=== PATIENT | male | born 1970 | race Caucasian/White ===

== ENCOUNTER 2017-06-01 16:36 | Emergency (ER) | payer MEDICAID, SELFPAY ==
--- NOTE | 2017-06-01 18:22 | HMH.EDUTC ---
[facility] [place] Disposition Clinical Impression: Viral upper respiratory illness Disposition: Home, Self-Care Condition on Discharge: Good Instructions: DI for Viral Upper Respiratory Infection -- Adult, DI for Fever (Symptom) -- Adult Additional Instructions: * Monitor Temp. Tylenol and/or Ibuprofen as needed. ER if fever is no less than 101 despite alternating Tylenol and Ibuprofen * Encourage fluids, water, Gatorade, powerade, pedialyte if /toddler/or child * Warm salt water gargles for throat irritation *Warm fluids *Sore throat lozenges *Sleep elevated *humidifier or vaporizer Lots of rest Increase fluids, water, Gatorade, powerade Follow up IMMEDIATELY for new or worsening of symptoms OR no noticeable improvement over the next 48-72 hours. 911 immediately for any life threatening symptoms such as chest pain or difficulty breathing Follow up with family doctor tomorrow if symptoms persist or worsen Prescriptions: Benzonatate [Tessalon Perle 100mg Cap] 100 mg PO TID PRN #15 cap PRN Reason: Cough Time of Disposition: 19:06 Medical Decision Making Vital Signs: 06/01/17 18:36 Temperature 100.4 F H Temperature Source Temporal Artery Scan Pulse Rate [Right Brachial] 84 Respiratory Rate 20 Blood Pressure [Right Arm] 112/75 Blood Pressure Mean [Right Arm] 87 Blood Pressure Source [Right Arm] Automatic Cuff Blood Pressure Position [Right Arm] Sitting 02 Sat by Pulse Oximetry 95 Oxygen Delivery Method Room Air - Bogdan Inquiry Pt receiving controlled substance: No Bogdan was queried for this patient: No [facility] [place] HPI - General Stated complaint: CHILLS,FEVER - History of Present Illness Provider Complaint: Patient state that he has been having flu like symptoms State that they have continued to get worse. State that he has been having low grade fever body aches, chills and sore throat State that he was worried and wanted to be checked for the flu - Related Data Home Medications Medication Instructions Recorded Confirmed Aspirin [Aspirin 81mg chewable 81 mg PO DAILY 06/01/17 06/01/17 tab] Carvedilol [Carvedilol 25mg Tab] 25 mg PO DAILY 06/01/17 06/01/17 Lisinopril [Lisinopril 40mg Tablet] 40 mg PO DAILY 06/01/17 06/01/17 Pravastatin Sodium [Pravachol] 20 mg PO DAILY 06/01/17 06/01/17 Previous Rx's Medication Instructions Recorded Benzonatate [Tessalon Perle 100mg 100 mg PO TID PRN #15 cap 06/01/17 Cap] Allergies Allergy/AdvReac Type Severity Reaction Status Date / Time From TETANUS AND DIPHTHERIA Allergy Unknown SWELLING Uncoded 05/10/17 14:05 TOXOIDS A... [facility] History I have reviewed the patient's past medical history: Yes ROS Obtained: Yes All systems reviewed & no additional complaints - Constitutional Constitutional: Reports chills, Reports fever(s) - ENT Ears, Nose, Mouth, and Throat: Reports sore throat - Respiratory Respiratory: Yes cough Physical Exam - General General appearance: alert, in no apparent distress - ENT ENT exam: Present: normal exam, normal oropharynx, mucous membranes moist, TM's normal bilaterally, normal external ear exam - Respiratory Respiratory exam: Present: normal lung sounds bilaterally. Absent: respiratory distress - Cardiovascular Cardiovascular exam: Present: regular rate, normal rhythm. Absent: JVD - Neurological Exam Neurological exam: Present: alert, oriented X3
[2017-06-01 18:36] VITALS: BP 112/75; PULSE 84; RESP 20; TEMP 38; O2SAT 95; BMI 40.7
[2017-06-01 19:08] LABS: UTC Influenza A Antigen Negative (Negative); UTC Influenza B Antigen Negative (Negative)
== END 2017-06-01 19:16 | disposition home or self-care (01) ==
PROVIDERS: Emergency Provider Nurse Practitioner
DX: J06.9 Acute upper respiratory infection, unspecified (principal)
CPT/HCPCS: 87804; 99202

== ENCOUNTER 2017-07-14 19:29 | Emergency (ER) | payer MEDICAID, SELFPAY ==
[2017-07-14 19:45] VITALS: BP 140/92; PULSE 73; RESP 20; TEMP 37.1; O2SAT 97; BMI 43.0
--- NOTE | 2017-07-14 19:53 | HMH.EDUTC ---
[facility] [place] Clinical Impression: Low back pain Qualifiers: Chronicity: acute Back pain laterality: right Sciatica presence: without sciatica Qualified Code(s): M54.5 - Low back pain Right otitis media Qualifiers: Otitis media type: suppurative Chronicity: acute Recurrence: not specified as recurrent Spontaneous tympanic membrane rupture: without spontaneous rupture Qualified Code(s): H66.001 - Acute suppurative otitis media without spontaneous rupture of ear drum, right ear Hypertension Qualifiers: Hypertension type: essential hypertension Qualified Code(s): I10 - Essential (primary) hypertension Disposition: Home, Self-Care Condition on Discharge: Good Prescriptions: Amoxicillin/Potassium Clav [Augmentin 875-125 Tablet] 1 tab PO Q12H 10 Days #20 tab Amoxicillin/Potassium Clav [Augmentin 875-125 Tablet] 1 tab PO Q12H 10 Days #20 tab hydroCHLOROthiazide [Hydrochlorothiazide 12.5mg Tab] 12.5 mg PO DAILY 21 Days #21 tab hydroCHLOROthiazide [Hydrochlorothiazide 12.5mg Tab] 12.5 mg PO DAILY 21 Days #21 tab methylPREDNISolone [Medrol] 4 mg PO DAILY 6 Days #21 tab.ds.pk methylPREDNISolone [Medrol] 4 mg PO DAILY 6 Days #21 tab.ds.pk Time of Disposition: 20:03 Medical Decision Making - Medical Records Medical records reviewed: Yes: I reviewed the patient's medical records. - Bogdan Inquiry Pt receiving controlled substance: No [facility] [place] - General Stated complaint: Back Pain, Right Ear Pain, High BP Time Seen by Provider: 07/14/17 19:53 - History of Present Illness Provider Complaint: Patient has had right ear pain for 3 months. It feels full. He has taken loratadine without relief. Patient has chronic back pain related to a fall 3-4 years ago. Patient states his blood pressure has been elevated. He is on Lisinopril and Carvedilol. Onset (ago): month(s) (3) Location: face Relieving factors: none Exacerbating factors: none Treatments prior to arrival: other (loratadine) - Related Data Home Medications Medication Instructions Recorded Confirmed Aspirin [Aspirin 81mg chewable 81 mg PO DAILY 06/01/17 06/01/17 tab] Carvedilol [Carvedilol 25mg Tab] 25 mg PO DAILY 06/01/17 06/01/17 Lisinopril [Lisinopril 40mg Tablet] 40 mg PO DAILY 06/01/17 06/01/17 Pravastatin Sodium [Pravachol] 20 mg PO DAILY 06/01/17 06/01/17 Previous Rx's Medication Instructions Recorded Benzonatate [Tessalon Perle 100mg 100 mg PO TID PRN #15 cap 06/01/17 Cap] Amoxicillin/Potassium Clav 1 tab PO Q12H 10 Days #20 tab 07/14/17 [Augmentin 875-125 Tablet] Amoxicillin/Potassium Clav 1 tab PO Q12H 10 Days #20 tab 07/14/17 [Augmentin 875-125 Tablet] hydroCHLOROthiazide 12.5 mg PO DAILY 21 Days #21 tab 07/14/17 [Hydrochlorothiazide 12.5mg Tab] hydroCHLOROthiazide 12.5 mg PO DAILY 21 Days #21 tab 07/14/17 [Hydrochlorothiazide 12.5mg Tab] methylPREDNISolone [Medrol] 4 mg PO DAILY 6 Days #21 tab.ds.pk 07/14/17 methylPREDNISolone [Medrol] 4 mg PO DAILY 6 Days #21 tab.ds.pk 07/14/17 Allergies Allergy/AdvReac Type Severity Reaction Status Date / Time From TETANUS AND DIPHTHERIA Allergy Unknown SWELLING Uncoded 05/10/17 14:05 TOXOIDS A... [facility] History I have reviewed the patient's past medical history: Yes Medical History: Reports:: Hyperlipidemia, Hypertension Denies:: Cancer, Diabetes Mellitus Type 1, Diabetes Mellitus Type 2, MRSA Amputation: No Fractures: No - Social History Smoking Status: Never smoker Alcohol Intake: never ROS Obtained: Yes All systems reviewed & no additional complaints - ENT Ears, Nose, Mouth, and Throat: Reports otalgia - Musculoskeletal Musculoskeletal: Reports back pain Physical Exam - General General appearance: alert, in no apparent distress - Head Head exam: atraumatic, normocephalic, normal inspection - Eye Eye exam: Present: normal appearance, PERRL, EOMI - ENT ENT exam: Present: normal exam, normal oropharynx, mucous membranes moist, normal external ear exa
--- NOTE | 2017-07-14 19:56 | ED_ITS ---
[facility] [place] Disposition Clinical Impression: Low back pain Qualifiers: Chronicity: acute Back pain laterality: right Sciatica presence: without sciatica Qualified Code(s): M54.5 - Low back pain Right otitis media Qualifiers: Otitis media type: suppurative Chronicity: acute Recurrence: not specified as recurrent Spontaneous tympanic membrane rupture: without spontaneous rupture Qualified Code(s): H66.001 - Acute suppurative otitis media without spontaneous rupture of ear drum, right ear Hypertension Qualifiers: Hypertension type: essential hypertension Qualified Code(s): I10 - Essential ( primary) hypertension Disposition: Home, Self-Care Condition on Discharge: Good Prescriptions: Amoxicillin/Potassium Clav [Augmentin 875-125 Tablet] 1 tab PO Q12H 10 Days #20 tab Amoxicillin/Potassium Clav [Augmentin 875-125 Tablet] 1 tab PO Q12H 10 Days #20 tab hydroCHLOROthiazide [Hydrochlorothiazide 12.5mg Tab] 12.5 mg PO DAILY 21 Days # 21 tab hydroCHLOROthiazide [Hydrochlorothiazide 12.5mg Tab] 12.5 mg PO DAILY 21 Days # 21 tab methylPREDNISolone [Medrol] 4 mg PO DAILY 6 Days #21 tab.ds.pk methylPREDNISolone [Medrol] 4 mg PO DAILY 6 Days #21 tab.ds.pk Time of Disposition: 20:03 Medical Decision Making - Medical Records Medical records reviewed: Yes: I reviewed the patient's medical records. - Bogdan Inquiry Pt receiving controlled substance: No [facility] [place] HPI - General Stated complaint: Back Pain, Right Ear Pain, High BP Time Seen by Provider: 07/14/17 19:53 - History of Present Illness Provider Complaint: Patient has had right ear pain for 3 months. It feels full. He has taken loratadine without relief. Patient has chronic back pain related to a fall 3-4 years ago. Patient states his blood pressure has been elevated. He is on Lisinopril and Carvedilol. Onset (ago): month(s) (3) Location: face Relieving factors: none Exacerbating factors: none Treatments prior to arrival: other (loratadine) - Related Data Home Medications Medication Instructions Recorded Confirmed Aspirin [Aspirin 81mg chewable 81 mg PO DAILY 06/01/17 06/01/17 tab] Carvedilol [Carvedilol 25mg Tab] 25 mg PO DAILY 06/01/17 06/01/17 Lisinopril [Lisinopril 40mg Tablet] 40 mg PO DAILY 06/01/17 06/01/17 Pravastatin Sodium [Pravachol] 20 mg PO DAILY 06/01/17 06/01/17 Previous Rx's Medication Instructions Recorded Benzonatate [Tessalon Perle 100mg 100 mg PO TID PRN #15 cap 06/01/17 Cap] Amoxicillin/Potassium Clav 1 tab PO Q12H 10 Days #20 tab 07/14/17 [Augmentin 875-125 Tablet] Amoxicillin/Potassium Clav 1 tab PO Q12H 10 Days #20 tab 07/14/17 [Augmentin 875-125 Tablet] hydroCHLOROthiazide 12.5 mg PO DAILY 21 Days #21 tab 07/14/17 [Hydrochlorothiazide 12.5mg Tab] hydroCHLOROthiazide 12.5 mg PO DAILY 21 Days #21 tab 07/14/17 [Hydrochlorothiazide 12.5mg Tab] methylPREDNISolone [Medrol] 4 mg PO DAILY 6 Days #21 tab.ds.pk 07/14/17 methylPREDNISolone [Medrol] 4 mg PO DAILY 6 Days #21 tab.ds.pk 07/14/17 Allergies Allergy/AdvReac Type Severity Reaction Status Date / Time From TETANUS AND DIPHTHERIA Allergy Unknown SWELLING Uncoded 05/10/17 14:05 TOXOIDS A... [facility] History I have reviewed the patient's past medical history: Yes Medical History: Reports:: Hyperlipidemia, Hypertension Denies:: Cancer, Diabetes Mellitus Type 1, Diabetes Mellitus Type 2, MRSA Amputation: No Fra
[2017-07-14 20:16] VITALS: BP 135/69; PULSE 75; RESP 20; TEMP 36.9; O2SAT 98
== END 2017-07-14 20:18 | disposition home or self-care (01) ==
PROVIDERS: Emergency Provider Physician Assistant
DX: H66.001 Acute suppurative otitis media without spontaneous rupture of ear drum, right ear (principal); I10 Essential (primary) hypertension; M54.6 Pain in thoracic spine; Z79.82 Long term (current) use of aspirin; Z88.7 Allergy status to serum and vaccine; E78.5 Hyperlipidemia, unspecified
CPT/HCPCS: 99202

== ENCOUNTER 2017-07-21 22:33 | Emergency (ER) | payer MEDICAID, SELFPAY ==
[2017-07-21 22:33] VITALS: BP 138/98; PULSE 71; RESP 20; TEMP 36.7; O2SAT 98; BMI 40.7
--- NOTE | 2017-07-21 22:44 | XR_ITS ---
XR chest 2V HISTORY: ITS.REASON: CHEST PAIN ORDERING PHYSICIAN: Nirmal Mace MD PATIENT AGE: 47 years COMPARISON: None available FINDINGS: There is mild cardiomegaly without failure.. The lungs are clear without infiltrates, suspicious nodules, or pleural effusions. No acute bony abnormalities. IMPRESSION: Mild cardiomegaly otherwise negative
[2017-07-21 22:59] LABS: Basophils % 0.1 % (0.1-2.0); Eosinophils # 0.1 K/mm3 (0.0-0.4); Eosinophils % 0.4 % (0.1-12.0); Hematocrit 49.6 % (42.0-52.0); Hemoglobin 15.8 g/dL (14.1-18.0); Lymphocytes # 1.6 K/mm3 (0.7-4.5); Lymphocytes % 11.8 K/mm3 (10-50); Mean Corpuscular Hemoglobin 30.2 pg (27.0-31.2); Mean Corpuscular Volume 94.3 fl (80-94); Mean Platelet Volume 8.5 fl (7.4-10.4); Monocytes # 0.9 K/mm3 (0.1-1.0); Monocytes % 6.2 % (1.7-9.3); Neutrophils # 11.2 K/mm3 (1.8-7.8); Neutrophils % 81.4 % (37.0-80.0); Platelet Count 281 K/mm3 (142-424); Red Blood Count 5.25 M/mm3 (4.60-6.20); Red Cell Distribution Width 13.5 % (11.5-17.5); White Blood Count 13.8 K/mm3 (4.8-10.8)
--- NOTE | 2017-07-21 23:06 | HMH.EDCP ---
ED Disposition Clinical Impression: Renal insufficiency Chest pain Qualifiers: Chest pain type: precordial pain Qualified Code(s): R07.2 - Precordial pain Hypertension Qualifiers: Hypertension type: unspecified Qualified Code(s): I10 - Essential (primary) hypertension Disposition: Home, Self-Care Condition on Discharge: Good Instructions: DI for Atypical Chest Pain Additional Instructions: see card at 0900 - Critical Care Critical Care Time: No Attestation: On 07/21/17, the high probability of a clinically significant, sudden or life threatening deterioration of the following system(s) required my full and direct attention, intervention and personal management. The time I documented below is in addition to time spent performing reported procedures but includes the following listed in this critical care notation. Medical Decision Making - Medical Records Medical records reviewed: Yes: I reviewed the patient's medical records. Vital Signs: 07/21/17 22:33 Temperature 98.1 F Temperature Source Oral Pulse Rate [Right Radial] 71 Respiratory Rate 20 Blood Pressure [Right Arm] 138/98 Blood Pressure Mean [Right Arm] 111 Blood Pressure Position [Right Arm] Sitting 02 Sat by Pulse Oximetry 98 - Lab Data Lab results reviewed: Yes: I reviewed the patient's lab results. Lab Results 07/21/17 22:50: WBC 13.8 H, RBC 5.25, Hgb 15.8, Hct 49.6, MCV 94.3 H, MCH 30.2, MCHC 32.0, RDW 13.5, Plt Count 281, MPV 8.5, Neut % (Auto) 81.4 H, Lymph % (Auto) 11.8, [place] % (Auto) 6.2, Eos % (Auto) 0.4, Baso % (Auto) 0.1, Neut # (Auto) 11.2 H, Lymph # (Auto) 1.6, [place] # (Auto) 0.9, Eos # (Auto) 0.1, Baso # (Auto) 0.0 07/21/17 22:50: Sodium 138, Potassium 4.1, Chloride 101, Carbon Dioxide 30, Anion Gap 11.1, BUN 37 H, Creatinine 1.55 H, Estimated Creat Clear 96, Estimated GFR 48 L, Est GFR ( Amer) 58 L, Glucose 132 H, Calcium 8.8, Total Bilirubin 0.4, AST 13 L, ALT 47, Alkaline Phosphatase 73, Total Creatine Kinase 87, CK-MB (CK-2) 2.1, CK-MB (CK-2) Rel Index 2.4, Troponin I < 0.02, Total Protein 7.3, Albumin 3.8, Globulin 3.5 H, Albumin/Globulin Ratio 1.1 Result diagrams: 07/21/17 22:50 07/21/17 22:50 Orders (Tests/Meds): ED MEDICATIONS Discontinued Medications Generic Name Dose Route Start Last Admin Trade Name Eva PRN Reason Stop Dose Admin Aspirin 324 mg 07/21/17 22:56 07/21/17 22:57 Aspirin 81mg Chewable Tablet PO 07/21/17 22:57 324 mg ONCE ONE Administration ORDERS Category Date Time Status XR chest 2V Stat Exams 07/21/17 22:44 Taken - Radiology Data #1 Image(s): Chest Image Reviewed: Yes I reviewed the patient's radiology image Preliminary Findings: Abnormal (possible anuyersm) - ECG Data Tracing #1 I reviewed this ECG and interpreted as documented below: Normal Sinus Rhythm: Yes Ischemic changes: non-specific ST-T wave changes - Bogdan Inquiry Pt receiving controlled substance: No Chest Pain HPI - General Chief Complaint: Chest Pain Stated Complaint: HYPERTENSION Time Seen by Provider: 07/21/17 23:07 Mode of Arrival: Ambulatory Source of Information: Patient, Medical Record Limitations: No Limitations Description of Symptoms (Recalled from ER Triage Doc. by RN): PT STATES HIS BP HAS BEEN SHOOTING UP. PT WAS SEEN AT PMD AND HIS BP WAS FINE. PT TAKES LISINOPRIL AT HOME. PT STATES HE STARTED HAVING SOME CHEST PAINS TODAY ALSO. PT STATES THAT WHEN HIS BP IS HIGH HE HAS BILATERAL HAND NUMBNESS AND TINGLING - History of Present Illness HPI narrative: pt with episode of elevated bp at work yesterday and seen by pcp- he had chest pain x 2 today lasting hrs each- had gxt in 2015 was neg complaint: chest pain Onset (ago): day(s) Duration: now resolved Activity at onset: light activity Pain location: substernal Severity: moderate Quality: dull Relieving factors: nothing Exacerbating factors: nothing Risk Factors for CAD: Hypertension, Hyperch
[2017-07-21 23:24] LABS: Alanine Aminotransferase 47 U/L (12-78); Albumin Level 3.8 gm/dL (3.4-5.0); Albumin/Globulin Ratio 1.1 (1.1-1.8); Alkaline Phosphatase 73 U/L (46-116); Anion Gap 11.1 mEq/L (5-15); Aspartate Amino Transferase 13 U/L (15-37); Bilirubin,Total 0.4 mg/dL (0.2-1.0); Blood Urea Nitrogen 37 mg/dL (7-18); CKMB Relative Index 2.4 U/L (0-4.0); Calcium 8.8 mg/dL (8.5-10.1); Carbon Dioxide 30 mmol/L (21.0-32.0); Chloride 101 mmol/L (98-107); Creatine Kinase 87 U/L (39-308); Creatine Kinase MB 2.1 mg/ml (0.0-3.6); Creatinine Clearance Estimated 96 mL/min (0-300); Creatinine,Serum 1.55 mg/dL (0.70-1.30); Estimated Glomerular Filt Rate 48 ml/min (>60); GFR (African American) 58 ML/MIN (>60); Globulin 3.5 gm/dl (1.3-3.2); Glucose 132 mg/dL (74-106); Potassium 4.1 mmoL/L (3.5-5.1); Sodium 138 mmol/L (136-145); Total Protein,Serum 7.3 gm/dL (6.4-8.2); Troponin I < 0.02 ng/ml (0.00-0.06)
[2017-07-22 00:52] LABS: Troponin I < 0.02 ng/ml (0.00-0.06)
[2017-07-22 01:04] VITALS: BP 140/78; PULSE 78; RESP 20; TEMP 36.6; O2SAT 99
== END 2017-07-22 01:10 | disposition home or self-care (01) ==
PROVIDERS: Emergency Provider Emergency Medicine
DX: R07.2 Precordial pain (principal); R07.9 Chest pain, unspecified; N28.9 Disorder of kidney and ureter, unspecified; E78.5 Hyperlipidemia, unspecified; Z79.82 Long term (current) use of aspirin; Z88.7 Allergy status to serum and vaccine
CPT/HCPCS: 71046; 80053; 82550; 82553; 84484; 85025; 93005; 99282

== ENCOUNTER 2017-08-11 21:36 | Emergency (ER) | payer MEDICAID, SELFPAY ==
[2017-08-11 21:46] VITALS: BP 124/87; PULSE 67; RESP 20; O2SAT 99; BMI 40.7
--- NOTE | 2017-08-11 21:51 | CT_ITS ---
CT head/brain wo con HISTORY: Visual disturbance, hypertension, arm numbness ITS.REASON: arm numbness ORDERING PHYSICIAN: Mich Israel MD PATIENT AGE: 47 years COMPARISON: None TECHNIQUE: Axial images obtained without contrast. Brain and bone windows reviewed. All CT scans at the facility use one or more dose reduction, viz: automated exposure control; ma/kV adjustment per patient size (including targeted exams where dose is matched to indication; i.e. head); or iterative reconstruction technique. FINDINGS: No midline shift, mass effect, intracranial hemorrhage, hydrocephalus, or extra-axial fluid collection is evident. Hypodense changes are present in the periventricular region consistent with ischemic gliotic change from microvascular disease. The calvarium has an unremarkable appearance. No mastoid effusion. No sinus air-fluid levels.. IMPRESSION: No acute intracranial findings. Periventricular white matter changes which may related to periventricular ischemic gliotic change from microvascular disease. There is no evidence of intracranial hemorrhage, focal mass, or acute territorial infarction. A negative CT does not exclude an acute CVA. A follow-up head CT or MRI is recommended if neurological symptoms persist
--- NOTE | 2017-08-11 21:51 | XR_ITS ---
XR chest 2V HISTORY: Hypotension ITS.REASON: arm numbness ORDERING PHYSICIAN: Mich Israel MD PATIENT AGE: 47 years COMPARISON: None available FINDINGS: The cardiomediastinal silhouette and pulmonary vascularity are within normal limits. The lungs are clear without infiltrates, suspicious nodules, or pleural effusions. No acute bony abnormalities. IMPRESSION: Negative chest, no acute finding
[2017-08-11 22:25] LABS: Basophils % 0.5 % (0.1-2.0); Eosinophils # 0.3 K/mm3 (0.0-0.4); Eosinophils % 3.6 % (0.1-12.0); Hematocrit 44.5 % (42.0-52.0); Hemoglobin 14.5 g/dL (14.1-18.0); Lymphocytes # 1.8 K/mm3 (0.7-4.5); Lymphocytes % 24.3 K/mm3 (10-50); Mean Corpuscular HGB Conc 32.5 g/dL (31.8-35.4); Mean Corpuscular Hemoglobin 29.9 pg (27.0-31.2); Mean Corpuscular Volume 91.9 fl (80-94); Mean Platelet Volume 8.8 fl (7.4-10.4); Monocytes # 0.5 K/mm3 (0.1-1.0); Monocytes % 6.8 % (1.7-9.3); Neutrophils # 4.8 K/mm3 (1.8-7.8); Neutrophils % 64.8 % (37.0-80.0); Platelet Count 270 K/mm3 (142-424); Red Blood Count 4.85 M/mm3 (4.60-6.20); White Blood Count 7.5 K/mm3 (4.8-10.8)
[2017-08-11 23:05] LABS: Alanine Aminotransferase 32 U/L (12-78); Albumin Level 3.8 gm/dL (3.4-5.0); Albumin/Globulin Ratio 1.1 (1.1-1.8); Alkaline Phosphatase 85 U/L (46-116); Anion Gap 9.9 mEq/L (5-15); Aspartate Amino Transferase 17 U/L (15-37); Bilirubin,Total 0.4 mg/dL (0.2-1.0); Blood Urea Nitrogen 26 mg/dL (7-18); CKMB Relative Index 1.5 U/L (0-4.0); Calcium 8.8 mg/dL (8.5-10.1); Carbon Dioxide 30 mmol/L (21.0-32.0); Chloride 102 mmol/L (98-107); Creatine Kinase 84 U/L (39-308); Creatine Kinase MB 1.3 ng/ml (0.0-3.6); Creatinine Clearance Estimated 88 mL/min (0-300); Estimated Glomerular Filt Rate 43 ml/min (>60); GFR (African American) 52 ML/MIN (>60); Globulin 3.5 gm/dl (1.3-3.2); Glucose 116 mg/dL (74-106); Potassium 3.9 mmoL/L (3.5-5.1); Sodium 138 mmol/L (136-145); Total Protein,Serum 7.3 gm/dL (6.4-8.2); Troponin I < 0.02 ng/ml (0.00-0.06)
--- NOTE | 2017-08-11 23:19 | HMH.EDGENADL ---
ED Disposition Clinical Impression: TIA (transient ischemic attack), Hypertension, Hyperlipidemia, Renal insufficiency Disposition: Xfer Short-Term Hosp Condition on Discharge: Fair - Critical Care Critical Care Time: No Attestation: On 08/11/17, the high probability of a clinically significant, sudden or life threatening deterioration of the following system(s) required my full and direct attention, intervention and personal management. The time I documented below is in addition to time spent performing reported procedures but includes the following listed in this critical care notation. Medical Decision Making - Bogdan Inquiry Pt receiving controlled substance: No Bogdan was queried for this patient: No Vital Signs: 08/11/17 21:46 Pulse Rate [Right Radial] 67 Respiratory Rate 20 Blood Pressure [Right Arm] 124/87 Blood Pressure Mean [Right Arm] 99 Blood Pressure Position [Right Arm] Sitting 02 Sat by Pulse Oximetry 99 - Lab Data Lab Results 08/11/17 22:20: WBC 7.5, RBC 4.85, Hgb 14.5, Hct 44.5, MCV 91.9, MCH 29.9, MCHC 32.5, RDW 13.0, Plt Count 270, MPV 8.8, Neut % (Auto) 64.8, Lymph % (Auto) 24.3, [place] % (Auto) 6.8, Eos % (Auto) 3.6, Baso % (Auto) 0.5, Neut # (Auto) 4.8, Lymph # (Auto) 1.8, [place] # (Auto) 0.5, Eos # (Auto) 0.3, Baso # (Auto) 0.0 08/11/17 22:20: Sodium 138, Potassium 3.9, Chloride 102, Carbon Dioxide 30, Anion Gap 9.9, BUN 26 H, Creatinine 1.70 H, Estimated Creat Clear 88, Estimated GFR 43 L, Est GFR ( Amer) 52 L, Glucose 116 H, Calcium 8.8, Total Bilirubin 0.4, AST 17, ALT 32, Alkaline Phosphatase 85, Total Creatine Kinase 84, CK-MB (CK-2) 1.3 D, CK-MB (CK-2) Rel Index 1.5, Troponin I < 0.02, Total Protein 7.3, Albumin 3.8, Globulin 3.5 H, Albumin/Globulin Ratio 1.1 Result diagrams: 08/11/17 22:20 08/11/17 22:20 Orders (Tests/Meds): ORDERS Category Date Time Status CT head/brain wo con Stat Cat Scan 08/11/17 21:51 Taken XR chest 2V Stat Exams 08/11/17 21:51 Taken - Radiology Data #1 Image(s): Chest Preliminary Findings: Normal/NAD - CT Data CT Scan: Head Time Received: 23:[address] Reviewed: Yes: I have viewed the radiologist's interpretation Preliminary Findings: Normal/NAD - ECG Data Tracing #1 Sinus bradycardia 52/min no acute finding. ECG initial impression date: 08/11/17 ECG initial impression time: 23:39 Medical Decision Narrative: 2330 I called [facility] spoke with Dr. Butcher from stroke service. She accepted the patient for transfer. General Adult HPI - General Chief complaint: Eye Problems Stated complaint: BP LOW Time Seen by Provider: 08/11/17 22:30 Mode of Arrival: Family Vehicle Limitations: No Limitations Description of Symptoms (Recalled from ER Triage Doc. by RN): pt states she started seeing spots while at work, pt had his bp checked and it was low. pt states he started having some right hand numbness also at approx 1000. - History of Present Illness HPI narrative: 47 years old white male with history of hypertension and hyperlipidemia. Today at 10 am, he developed right numbness that lasted until 3 PM when he went to work. At 8 PM he developed vision and felt weak so he checked his blood pressure was 90/60. Brought to the ED upon arrival his blood pressure was 120/90 mmhg. it lasted for for an hour then the symptoms resolved. Remained asymptomatic and hemodynamically stable during his workup in the ED. Onset (ago): hour(s) (Right hand numbness for 5 hours right eye blurry for 1 hour.) Location: eyes, right, upper extremity Radiation: non-radiation Severity: mild Consistency: constant Exacerbating factors: none Associated symptoms: other (Dizziness. ) - Related Data Home Medications Medication Instructions Recorded Confirmed Aspirin [Aspirin 81mg chewable 81 mg PO DAILY 06/01/17 08/11/17 tab] Lisinopril [Lisinopril 40mg Tablet] 40 mg PO DAILY 06/01/17 08/11/17 Pr
--- NOTE | 2017-08-11 23:22 | ED_ITS ---
ED Disposition Clinical Impression: TIA (transient ischemic attack), Hypertension, Hyperlipidemia, Renal insufficiency Disposition: Xfer Short-Term Hosp Condition on Discharge: Fair - Critical Care Critical Care Time: No Attestation: On 08/11/17, the high probability of a clinically significant, sudden or life threatening deterioration of the following system(s) required my full and direct attention, intervention and personal management. The time I documented below is in addition to time spent performing reported procedures but includes the following listed in this critical care notation. Medical Decision Making - Bogdan Inquiry Pt receiving controlled substance: No Bogdan was queried for this patient: No Vital Signs: 08/11/17 21:46 Pulse Rate [Right Radial] 67 Respiratory Rate 20 Blood Pressure [Right Arm] 124/87 Blood Pressure Mean [Right Arm] 99 Blood Pressure Position [Right Arm] Sitting 02 Sat by Pulse Oximetry 99 - Lab Data Lab Results 08/11/17 22:20: WBC 7.5, RBC 4.85, Hgb 14.5, Hct 44.5, MCV 91.9, MCH 29.9, MCHC 32.5, RDW 13.0, Plt Count 270, MPV 8.8, Neut % (Auto) 64.8, Lymph % (Auto) 24.3 , [place] % (Auto) 6.8, Eos % (Auto) 3.6, Baso % (Auto) 0.5, Neut # (Auto) 4.8, Lymph # (Auto) 1.8, [place] # (Auto) 0.5, Eos # (Auto) 0.3, Baso # (Auto) 0.0 08/11/17 22:20: Sodium 138, Potassium 3.9, Chloride 102, Carbon Dioxide 30, Anion Gap 9.9, BUN 26 H, Creatinine 1.70 H, Estimated Creat Clear 88, Estimated GFR 43 L, Est GFR ( Amer) 52 L, Glucose 116 H, Calcium 8.8, Total Bilirubin 0.4, AST 17, ALT 32, Alkaline Phosphatase 85, Total Creatine Kinase 84 , CK-MB (CK-2) 1.3 D, CK-MB (CK-2) Rel Index 1.5, Troponin I < 0.02, Total Protein 7.3, Albumin 3.8, Globulin 3.5 H, Albumin/Globulin Ratio 1.1 Result diagrams: 08/11/17 22:20 08/11/17 22:20 Orders (Tests/Meds): ORDERS Category Date Time Status CT head/brain wo con Stat Cat Scan 08/11/17 21:51 Taken XR chest 2V Stat Exams 08/11/17 21:51 Taken - Radiology Data #1 Image(s): Chest Preliminary Findings: Normal/NAD - CT Data CT Scan: Head Time Received: 23:[address] Reviewed: Yes: I have viewed the radiologist's interpretation Preliminary Findings: Normal/NAD - ECG Data Tracing #1 Sinus bradycardia 52/min no acute finding. ECG initial impression date: 08/11/17 ECG initial impression time: 23:39 Medical Decision Narrative: 2330 I called [facility] spoke with Dr. Butcher from stroke service. She accepted the patient for transfer. General Adult HPI - General Chief complaint: Eye Problems Stated complaint: BP LOW Time Seen by Provider: 08/11/17 22:30 Mode of Arrival: Family Vehicle Limitations: No Limitations Description of Symptoms (Recalled from ER Triage Doc. by RN): pt states she started seeing spots while at work, pt had his bp checked and it was low. pt states he started having some right hand numbness also at approx 1000. - History of Present Illness HPI narrative: 47 years old white male with history of hypertension and hyperlipidemia. Today at 10 am, he developed right numbness that lasted until 3 PM when he went to work. At 8 PM he developed vision and felt weak so he checked his blood pressure was 90/60. Brought to the ED upon arrival his blood pressure was 120/ 90 mmhg. it lasted for for an hour then the symptoms resolved. Remained asymptomatic and hemodynamically stable d
[2017-08-11 23:37] VITALS: BP 124/74; PULSE 50; RESP 16; TEMP 36.6; O2SAT 99
[2017-08-12 00:05] VITALS: BP 124/74; PULSE 50; RESP 20; TEMP 36.6; O2SAT 99
== END 2017-08-12 00:21 | disposition short-term general hospital (02) ==
PROVIDERS: Emergency Provider Emergency Medicine
DX: G45.8 Other transient cerebral ischemic attacks and related syndromes (principal); I10 Essential (primary) hypertension; E78.5 Hyperlipidemia, unspecified; N28.9 Disorder of kidney and ureter, unspecified; Z88.7 Allergy status to serum and vaccine
CPT/HCPCS: 70450; 71046; 80053; 82550; 82553; 84484; 85025; 93005; 99284

== ENCOUNTER → 2018-03-01 14:22 | Outpatient (CLI) | payer OTHER, MEDICAID, SELFPAY ==
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
== END ==
PROVIDERS: PCP Family Medicine; Visit Provider Nurse Practitioner Family
DX: M25.571 Pain in right ankle and joints of right foot (principal); V89.2XXA Person injured in unspecified motor-vehicle accident, traffic, initial encounter
CPT/HCPCS: 73610

== ENCOUNTER → 2018-03-23 15:52 | Outpatient (CLI) | payer OTHER, MEDICAID, SELFPAY ==
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
== END ==
PROVIDERS: PCP Nurse Practitioner Family; Visit Provider Nurse Practitioner Family
DX: M79.661 Pain in right lower leg (principal); V89.2XXA Person injured in unspecified motor-vehicle accident, traffic, initial encounter
CPT/HCPCS: 73590

== ENCOUNTER → 2018-04-05 14:07 | Outpatient (CLI) | payer OTHER, MEDICAID, SELFPAY ==
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
== END ==
PROVIDERS: PCP Family Medicine; Visit Provider Family Medicine
DX: M25.471 Effusion, right ankle (principal); M25.571 Pain in right ankle and joints of right foot; V89.2XXA Person injured in unspecified motor-vehicle accident, traffic, initial encounter
CPT/HCPCS: 73700

== ENCOUNTER 2018-04-07 14:30 | Outpatient (RCR) | payer OTHER, MEDICAID, SELFPAY ==
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
== END 2018-04-07 14:35 | disposition home or self-care (01) ==
LOC: PT 14:30
PROVIDERS: Visit Provider Family Medicine
DX: M25.571 Pain in right ankle and joints of right foot (principal); V89.2XXA Person injured in unspecified motor-vehicle accident, traffic, initial encounter
CPT/HCPCS: 97010; 97014; 97016; 97033; 97110; 97140; 97163; G0283

== ENCOUNTER → 2018-05-12 09:40 | Outpatient (CLI) | payer OTHER, MEDICAID, SELFPAY ==
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
--- NOTE | 2018-05-12 11:36 | XR_ITS ---
EXAM: XR lumbar spine min 4V HISTORY: Low back pain ITS.REASON: LUMBAGO ORDERING PHYSICIAN: Nadia Martinez DPM PATIENT AGE: 48 years COMPARISON: None FINDINGS: Normal alignment. No fracture or dislocation. No lytic or blastic change. No significant degenerative change. The disc spaces are preserved. Minimal bony spurring is present along the anterior endplates at L1 4 and L5.. There is mild facet sclerosis at L5-S1 IMPRESSION: No acute finding. Minimal degenerative change
== END ==
PROVIDERS: PCP Family Medicine; Visit Provider Podiatrist
DX: M54.5 Low back pain (principal); M25.579 Pain in unspecified ankle and joints of unspecified foot
CPT/HCPCS: 72110; 73610; 73630

== ENCOUNTER → 2018-06-12 15:07 | Outpatient (CLI) | payer OTHER, MEDICAID, SELFPAY | PROVIDERS: Visit Provider Podiatrist | DX: B35.1 Tinea unguium (principal) | CPT/HCPCS: 87102; 87206; 87220 ==

== ENCOUNTER 2018-06-22 08:00 | Outpatient (RCR) | payer OTHER, MEDICAID, SELFPAY ==
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
== END 2018-06-22 08:05 | disposition home or self-care (01) ==
LOC: PT 08:00
PROVIDERS: Visit Provider Podiatrist
DX: S82.831A Other fracture of upper and lower end of right fibula, initial encounter for closed fracture (principal); S97.81XA Crushing injury of right foot, initial encounter; M25.571 Pain in right ankle and joints of right foot; M19.171 Post-traumatic osteoarthritis, right ankle and foot; G89.29 Other chronic pain
CPT/HCPCS: 97010; 97014; 97110; 97140; 97163; G0283

== ENCOUNTER 2018-06-22 08:30 | Outpatient (RCR) | payer OTHER, MEDICAID, SELFPAY | END 2018-06-22 08:35 | disposition home or self-care (01) | LOC: PT 08:30 | PROVIDERS: Visit Provider Nurse Practitioner Family | DX: M54.5 Low back pain (principal); V89.2XXA Person injured in unspecified motor-vehicle accident, traffic, initial encounter | CPT/HCPCS: 97010; 97014; 97110; 97163; G0283 ==

== ENCOUNTER → 2018-07-04 09:06 | Outpatient (CLI) | payer OTHER, MEDICAID, SELFPAY ==
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
--- NOTE | 2018-07-04 10:58 | HMH.ITSHM ---
Current Home Medications as stated by this patient Mark Jackson or benefits representative. []LISINOPRIL PRAVASTATIN ASPIRIN GABAPENTIN CYCLOBENZAPRINE MELOXICAM CARVEDILOL
== END ==
PROVIDERS: PCP Family Medicine; Visit Provider Podiatrist
DX: S82.831A Other fracture of upper and lower end of right fibula, initial encounter for closed fracture (principal)
CPT/HCPCS: 73720; 73723; A9576

== ENCOUNTER → 2018-07-19 09:06 | Outpatient (CLI) | payer MEDICAID, SELFPAY ==
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
== END ==
PROVIDERS: PCP Family Medicine; Visit Provider Family Medicine
DX: M54.5 Low back pain (principal); G89.21 Chronic pain due to trauma; V89.2XXA Person injured in unspecified motor-vehicle accident, traffic, initial encounter
CPT/HCPCS: 72158; 76376; A9576

== ENCOUNTER 2019-12-02 16:53 | Emergency (ER) | payer OTHER, SELFPAY ==
[2019-12-02 16:57] VITALS: BP 165/90; PULSE 73; RESP 16; TEMP 36.9; O2SAT 97; BMI 40.7
[2019-12-02 17:08] VITALS: BP 165/90; PULSE 73; RESP 16; TEMP 36.9; O2SAT 97; BMI 40.8
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
[2019-12-02 17:44] VITALS: BP 165/90; PULSE 73; RESP 16; TEMP 36.9; O2SAT 97
== END 2019-12-02 17:51 | disposition home or self-care (01) ==
PROVIDERS: Emergency Provider Nurse Practitioner; PCP Family Medicine
DX: H10.32 Unspecified acute conjunctivitis, left eye (principal); I10 Essential (primary) hypertension; E78.5 Hyperlipidemia, unspecified; G43.709 Chronic migraine without aura, not intractable, without status migrainosus; Z88.7 Allergy status to serum and vaccine; Z79.899 Other long term (current) drug therapy
CPT/HCPCS: 99201

== ENCOUNTER 2020-08-28 15:03 | Emergency (ER) | payer OTHER, SELFPAY ==
[2020-08-28] VITALS (10 sets, daily range): BP systolic 122–138; BP diastolic 71–95; PULSE 62–84; RESP 16–24; TEMP 36.5–36.6; O2SAT 91–98; BMI 46.2
--- NOTE | 2020-08-28 15:03 | ECG_ITS ---
APPROVED REPORT Exam: Resting ECG HR:67 bpm ECG Measurements Heart Rate 67 AXES CO 172 P 4 QRSd 92 QRS -63 QT 436 T 97 QTc 460 Conclusion Normal sinus rhythm Pulmonary disease pattern Incomplete right bundle branch block Left anterior fascicular block T wave abnormality, consider lateral ischemia Prolonged QT Abnormal ECG Electronically signed by : Terell Mann, 08/28/2020 17:31:10
--- NOTE | 2020-08-28 15:05 | HMH.EDGENADL ---
ED Disposition Clinical Impression: Ingestion of unknown medication Qualifiers: Encounter type: initial encounter Injury intent: accidental or unintentional Qualified Code(s): T50.901A - Poisoning by unspecified drugs, medicaments and biological substances, accidental (unintentional), initial encounter Disposition: Home, Self-Care Condition on Discharge: Good Additional Instructions: Return to the emergency room for any further problems or concerns. Referrals: PCP,No [Non-Staff] - - Critical Care Critical Care Time: No Attestation: On , the high probability of a clinically significant, sudden or life threatening deterioration of the following system(s) required my full and direct attention, intervention and personal management. The time I documented below is in addition to time spent performing reported procedures but includes the following listed in this critical care notation. Medical Decision Making - Bogdan Inquiry Pt receiving controlled substance: No Vital Signs: 08/28/20 15:07 08/28/20 15:13 08/28/20 15:30 Temperature 97.7 F Temperature Source Oral Pulse Rate 66 Pulse Rate [Orthostatic Lying Radial] 64 Pulse Rate [Orthostatic Standing] 73 Pulse Rate [Radial] 65 Respiratory Rate 16 24 Blood Pressure 132/95 H Blood Pressure [Orthostatic Lying Right Arm] 126/80 Blood Pressure [Orthostatic Standing Right Arm] 122/88 Blood Pressure [Right Arm] 127/81 Blood Pressure Mean 107 Blood Pressure Mean [Right Arm] 96 Blood Pressure Position [Right Arm] Sitting 02 Sat by Pulse Oximetry 91 L 95 Oxygen Delivery Method Room Air 08/28/20 16:01 08/28/20 16:31 08/28/20 17:00 Temperature Temperature Source Pulse Rate 62 78 73 Pulse Rate [Orthostatic Lying Radial] Pulse Rate [Orthostatic Standing] Pulse Rate [Radial] Respiratory Rate Blood Pressure 133/75 133/75 131/80 Blood Pressure [Orthostatic Lying Right Arm] Blood Pressure [Orthostatic Standing Right Arm] Blood Pressure [Right Arm] Blood Pressure Mean 98 94 103 Blood Pressure Mean [Right Arm] Blood Pressure Position [Right Arm] 02 Sat by Pulse Oximetry 97 96 Oxygen Delivery Method 08/28/20 17:31 Temperature Temperature Source Pulse Rate 84 Pulse Rate [Orthostatic Lying Radial] Pulse Rate [Orthostatic Standing] Pulse Rate [Radial] Respiratory Rate 17 Blood Pressure 137/92 H Blood Pressure [Orthostatic Lying Right Arm] Blood Pressure [Orthostatic Standing Right Arm] Blood Pressure [Right Arm] Blood Pressure Mean 106 Blood Pressure Mean [Right Arm] Blood Pressure Position [Right Arm] 02 Sat by Pulse Oximetry 93 L Oxygen Delivery Method - Lab Data Lab Results 08/28/20 15:05: WBC 10.4, RBC 5.46, Hgb 16.4, Hct 49.2, MCV 90.0, MCH 30.0, MCHC 33.4, RDW 13.5, Plt Count 306, MPV 8.5, Neut % (Auto) 70.8, Lymph % (Auto) 21.0, Bladen % (Auto) 5.2, Eos % (Auto) 1.9, Baso % (Auto) 1.0, Neut # (Auto) 7.3, Lymph # (Auto) 2.2, Bladen # (Auto) 0.5, Eos # (Auto) 0.2, Baso # (Auto) 0.1 08/28/20 15:27: Sodium 136, Potassium 3.9, Chloride 103, Carbon Dioxide 25, Anion Gap 11.9, BUN 24 H, Creatinine 1.40 H, Estimated Creat Clear 58, Estimated GFR 53 L, Est GFR ( Amer) 64, Glucose 133 H, Calcium 9.5, Total Bilirubin 0.8, AST 41, ALT 42, Alkaline Phosphatase 93, Troponin I < 0.01, Total Protein 7.5, Albumin 4.6, Globulin 2.9, Albumin/Globulin Ratio 1.6 08/28/20 15:27: Plasma/Serum Alcohol < 10 08/28/20 16:15: Urine Opiates Screen Negative, Urine Methadone Screen Negative, Ur Barbituates Screen Negative, Ur Phencyclidine Scrn Negative, Ur Amphetamines Screen Negative, U Benzodiazepines Scrn Negative, Urine Cocaine Screen Negative, U Marijuana (THC) Screen Negative Result diagrams: 08/28/20 15:05 08/28/20 15:27 Orders (Tests/Meds): ORDERS Category Date Time Status XR chest portable Stat Exams 08/28/20 15:13 Taken Troponin I Q3H Lab 08/28/20 18:15 Ordered Troponin I Q3H Lab
--- NOTE | 2020-08-28 15:13 | XR_ITS ---
PROCEDURE: XR CHEST PORTABLE CLINICAL HISTORY: weakness COMPARISON: CR,CT CXR2V XR chest 2V from 07/21/2017 CR CXR2V XR chest 2V from 08/11/2017 FINDINGS: The cardiomediastinal silhouette and pulmonary vascularity are within normal limits. The lungs are clear without infiltrates, suspicious nodules, or pleural effusions. No acute bony abnormalities. IMPRESSION: No acute findings. Dictated by: Sigifredo Sanchez MD 08/29/2020 05:42 Sigifredo Sanchez MD in OV 08/29/2020 05:42
[2020-08-28 15:22] LABS: Basophils # 0.1 K/mm3 (0-0.2); Eosinophils # 0.2 K/mm3 (0.0-0.4); Eosinophils % 1.9 % (0.1-12.0); Hematocrit 49.2 % (42.0-52.0); Hemoglobin 16.4 g/dL (14.1-18.0); Lymphocytes # 2.2 K/mm3 (0.7-4.5); Mean Corpuscular HGB Conc 33.4 g/dL (31.8-35.4); Mean Platelet Volume 8.5 fl (7.4-10.4); Monocytes # 0.5 K/mm3 (0.1-1.0); Monocytes % 5.2 % (1.7-9.3); Neutrophils # 7.3 K/mm3 (1.8-7.8); Neutrophils % 70.8 % (37.0-80.0); Platelet Count 306 K/mm3 (142-424); Red Blood Count 5.46 M/mm3 (4.60-6.20); Red Cell Distribution Width 13.5 % (11.5-17.5); White Blood Count 10.4 K/mm3 (4.8-10.8)
[2020-08-28 15:43] LABS: Potassium 3.9 mmoL/L (3.5-5.1); Sodium 136 mmol/L (136-145)
[2020-08-28 15:44] LABS: Chloride 103 mmol/L (98-107)
[2020-08-28 15:46] LABS: Alanine Aminotransferase 42 U/L (12-78); Albumin Level 4.6 g/dl (3.5-5.0); Albumin/Globulin Ratio 1.6 (1.1-1.8); Alkaline Phosphatase 93 U/L (38-126); Anion Gap 11.9 mEq/L (5-15); Aspartate Amino Transferase 41 U/L (17-59); Bilirubin,Total 0.8 mg/dl (0.2-1.3); Blood Urea Nitrogen 24 mg/dl (9-20); Carbon Dioxide 25 mmol/L (22.0-30.0); Creatinine Clearance Estimated 58 mL/min (50-200); Estimated Glomerular Filt Rate 53 ml/min (>60); GFR (African American) 64 ML/MIN (>60); Globulin 2.9 g/dL (1.3-3.2); Total Protein,Serum 7.5 g/dl (6.3-8.2)
[2020-08-28 15:47] LABS: Calcium 9.5 mg/dl (8.4-10.2); Glucose 133 mg/dl (74-100)
[2020-08-28 15:52] LABS: Ethyl Alcohol < 10 mg/dl (0-10)
[2020-08-28 15:59] LABS: Troponin I < 0.01 ng/ml (0.00-0.034)
[2020-08-28 16:32] LABS: Barbiturates Screen,Urine Negative ng/ml (<200); Benzodiazepines Screen,Urine Negative ng/ml (<200)
[2020-08-28 16:33] LABS: Amphetamine/Metha Screen,Urine Negative ng/ml (<1000); Cocaine Screen,Urine Negative ng/ml (<300)
[2020-08-28 16:34] LABS: Methadone Screen,Urine Negative ng/ml (<300)
[2020-08-28 16:35] LABS: Cannabinoid Screen,Urine Negative ng/ml (<50); Opiate Screen,Urine Negative ng/ml (<300)
[2020-08-28 16:36] LABS: Phencyclidine Screen,Urine Negative ng/ml (<25)
--- NOTE | 2020-08-28 18:28 | PC.NURSE ---
WENT TO DISCHARGE PT. PT STATED 20 MINUTES PRIOR THAT HE HAD A RIDE ON THE WAY. PT'S RIDE STILL NOT AT [facility] BUT PT STATES SHE STILL IS ON THE WAY. WILL CONTINUE TO MONITOR PATIENT IN ROOM, DUE TO PATIENTS ED COMPLAINT
--- NOTE | 2020-08-28 18:47 | PC.NURSE ---
PT REQUESTING TO GO TO LOBBY. PT ALERT AND ORIENTED X4 WITH A STEADY GATE.
== END 2020-08-28 18:49 | disposition home or self-care (01) ==
PROVIDERS: Emergency Provider Emergency Medicine; PCP Family Medicine
DX: T46.4X1A Poisoning by angiotensin-converting-enzyme inhibitors, accidental (unintentional), initial encounter (principal); R42 Dizziness and giddiness; Y92.019 Unspecified place in single-family (private) house as the place of occurrence of the external cause; I10 Essential (primary) hypertension; E78.5 Hyperlipidemia, unspecified; Z79.899 Other long term (current) drug therapy
CPT/HCPCS: 71045; 80053; 80305; 84484; 85025; 93005; 99282

== ENCOUNTER 2021-01-09 20:05 | Observation (INO) | payer OTHER, SELFPAY ==
[2021-01-09] VITALS (7 sets, daily range): BP systolic 115–157; BP diastolic 69–99; PULSE 62–74; RESP 13–26; TEMP 36.7; O2SAT 95–98; BMI 47.0
--- NOTE | 2021-01-09 20:01 | ECG_ITS ---
APPROVED REPORT Exam: Resting ECG HR:69 bpm ECG Measurements Heart Rate 69 AXES WV 196 P 55 QRSd 98 QRS -56 QT 400 T 76 QTc 428 Conclusion Normal sinus rhythm Pulmonary disease pattern Incomplete right bundle branch block Left anterior fascicular block Abnormal ECG Electronically signed by : Terell Mann MD 01/10/2021 09:39:20
--- NOTE | 2021-01-09 20:25 | XR_ITS ---
PROCEDURE INFORMATION: Exam: XR Chest Exam date and time: 01/09/2021 8:25 PM Age: 50 years old Clinical indication: Chest pressure; Patient HX: Chest pain TECHNIQUE: Imaging protocol: XR of the chest. Views: 2 views. COMPARISON: CR XR CHEST PORTABLE 08/28/2020 4:16 PM FINDINGS: Lungs: Unremarkable. No consolidation. Pleural spaces: Unremarkable. No pleural effusion. No pneumothorax. Heart/Mediastinum: Unremarkable. No cardiomegaly. Bones/joints: Degenerative changes of the shoulders. IMPRESSION: No acute findings.
--- NOTE | 2021-01-09 20:43 | HMH.EDCP ---
ED Disposition Clinical Impression: Chest pain Qualifiers: Chest pain type: precordial pain Qualified Code(s): R07.2 - Precordial pain Hypertension Qualifiers: Hypertension type: primary hypertension Qualified Code(s): I10 - Essential (primary) hypertension Obesity Qualifiers: Obesity type: due to excess calories Obesity classification: adult class 3 (BMI >= 40) Serious obesity comorbidity presence: with serious comorbidity Body mass index: BMI 45.0-49.9 Qualified Code(s): E66.01 - Morbid (severe) obesity due to excess calories; Z68.42 - Body mass index [BMI] 45.0-49.9, adult Disposition: Admitted as Observation Condition on Discharge: Good - Critical Care Critical Care Time: No Attestation: On 01/09/21, the high probability of a clinically significant, sudden or life threatening deterioration of the following system(s) required my full and direct attention, intervention and personal management. The time I documented below is in addition to time spent performing reported procedures but includes the following listed in this critical care notation. Medical Decision Making - Medical Records Medical records reviewed: Yes: I reviewed the patient's medical records. - Bogdan Inquiry Pt receiving controlled substance: No Vital Signs: 01/09/21 20:08 Temperature 98.1 F Temperature Source Oral Pulse Rate [Right] 72 Respiratory Rate 26 H Blood Pressure [Right Arm] 152/95 H Blood Pressure Mean [Right Arm] 114 Blood Pressure Source [Right Arm] Automatic Cuff Blood Pressure Position [Right Arm] Supine 02 Sat by Pulse Oximetry 96 Oxygen Delivery Method Room Air - Lab Data Lab results reviewed: Yes: I reviewed the patient's lab results. Lab Results 01/09/21 21:15: WBC 8.6, RBC 5.05, Hgb 15.5, Hct 47.1, MCV 93.2, MCH 30.6, MCHC 32.9, RDW 14.5, Plt Count 229, MPV 8.4, Neut % (Auto) 69.1, Lymph % (Auto) 20.5, [place] % (Auto) 6.7, Eos % (Auto) 2.7, Baso % (Auto) 0.9, Neut # (Auto) 6.0, Lymph # (Auto) 1.8, [place] # (Auto) 0.6, Eos # (Auto) 0.2, Baso # (Auto) 0.1, ESR 2 08/20/21 21:15: Sodium 136, Potassium 4.6, Chloride 102, Carbon Dioxide 26, Anion Gap 12.6, BUN 20, Creatinine 1.40 H, Estimated Creat Clear 58, Estimated GFR 53 L, Est GFR ( Amer) 64, Glucose 112 H, Calcium 8.9, Total Bilirubin 0.7, Direct Bilirubin 0.5 H, Conjugated Bilirubin 0.0, Indirect Bilirubin 0.2, Unconjugated Bilirubin 0.2, AST 38, ALT 34, Alkaline Phosphatase 69, Troponin I < 0.01, C-Reactive Protein 4.9 H, Total Protein 7.2, Albumin 4.3, Procalcitonin 0.138 Result diagrams: 01/09/21 21:15 01/09/21 21:15 Orders (Tests/Meds): ED MEDICATIONS Generic Name Dose Route Start Last Admin Trade Name Freq PRN Reason Stop Dose Admin Sodium Chloride 1,000 mls @ 999 mls/hr 01/09/21 20:30 01/09/21 21:07 Sod Chlor 0.9% 1000ml Bag IV 01/09/21 21:30 999 mls/hr .Q1H1M SANJU Administration Discontinued Medications Generic Name Dose Route Start Last Admin Trade Name Freq PRN Reason Stop Dose Admin Aspirin 324 mg 01/09/21 20:25 01/09/21 21:08 Aspirin 81mg Chewable Tablet PO 01/09/21 20:26 324 mg ONCE ONE Administration Nitroglycerin 0.4 mg 01/09/21 20:25 01/09/21 21:16 Nitroglycerin 0.4mg Sl Tablet SL 01/09/21 20:26 Not Given ONCE ONE Nitroglycerin 1 gm 01/09/21 22:30 01/09/21 22:32 Nitroglycerin 1 Gm Ointment TD 01/09/21 22:31 1 gm ONCE ONE Administration ORDERS Category Date Time Status Troponin I Q3H Lab 01/09/21 23:30 Ordered Troponin I Q3H Lab 01/10/21 02:30 Ordered - Radiology Data #1 Image(s): Chest Image Reviewed: Yes I reviewed the patient's radiology image Preliminary Findings: Normal/NAD - ECG Data Tracing #1 Normal Sinus Rhythm: Yes Ischemic changes: non-specific ST-T wave changes Medical Decision Narrative: has chest pain at rest - and will admit for serial enz at this time Chest Pain HPI - General Chief Complaint: Chest Pain Stated Complaint: CP T
[2021-01-09 21:24] LABS: Basophils # 0.1 K/mm3 (0-0.2); Basophils % 0.9 % (0.1-2.0); Eosinophils # 0.2 K/mm3 (0.0-0.4); Eosinophils % 2.7 % (0.1-12.0); Hematocrit 47.1 % (42.0-52.0); Hemoglobin 15.5 g/dL (14.1-18.0); Lymphocytes # 1.8 K/mm3 (0.7-4.5); Lymphocytes % 20.5 % (10-50); Mean Corpuscular HGB Conc 32.9 g/dL (31.8-35.4); Mean Corpuscular Hemoglobin 30.6 pg (27.0-31.2); Mean Corpuscular Volume 93.2 fl (80-94); Mean Platelet Volume 8.4 fl (7.4-10.4); Monocytes # 0.6 K/mm3 (0.1-1.0); Monocytes % 6.7 % (1.7-9.3); Neutrophils % 69.1 % (37.0-80.0); Platelet Count 229 K/mm3 (142-424); Red Blood Count 5.05 M/mm3 (4.60-6.20); Red Cell Distribution Width 14.5 % (11.5-17.5); White Blood Count 8.6 K/mm3 (4.8-10.8)
[2021-01-09 21:36] LABS: Alanine Aminotransferase 34 U/L (12-78); Albumin Level 4.3 g/dl (3.5-5.0); Alkaline Phosphatase 69 U/L (38-126); Anion Gap 12.6 mEq/L (5-15); Aspartate Amino Transferase 38 U/L (17-59); Bilirubin,Direct 0.5 mg/dl (0.0-0.4); Bilirubin,Indirect 0.2 mg/dL (0.0-0.9); Bilirubin,Total 0.7 mg/dl (0.2-1.3); Bilirubin,Unconjugated 0.2 mg/dL (0.0-1.1); Blood Urea Nitrogen 20 mg/dl (9-20); Calcium 8.9 mg/dl (8.4-10.2); Carbon Dioxide 26 mmol/L (22.0-30.0); Chloride 102 mmol/L (98-107); Creatinine Clearance Estimated 58 mL/min (50-200); Estimated Glomerular Filt Rate 53 ml/min (>60); GFR (African American) 64 ML/MIN (>60); Glucose 112 mg/dl (74-100); Potassium 4.6 mmoL/L (3.5-5.1); Sodium 136 mmol/L (136-145); Total Protein,Serum 7.2 g/dl (6.3-8.2)
[2021-01-09 21:42] LABS: C-Reactive Protein 4.9 mg/L (0-4)
[2021-01-09 21:48] LABS: Erythrocyte Sedimentation Rate 2 mm/hr (0-20)
[2021-01-09 21:51] LABS: Troponin I < 0.01 ng/ml (0.00-0.034)
[2021-01-09 21:56] LABS: Procalcitonin 0.138 ng/mL (0.0-2.0)
[2021-01-09 22:43] LABS: Coronavirus 19, PCR Not Detected (NotDetected); Influenza A, PCR Not Detected (NotDetected); Influenza B, PCR Not Detected (NotDetected)
--- NOTE | 2021-01-09 23:52 | PC.NURSE ---
patient up to floor via wheelchair.
[2021-01-10] VITALS: BP 127/68; PULSE 58; RESP 19; TEMP 36.5; O2SAT 97; BMI 47.9
[2021-01-10 00:12] LABS: Troponin I < 0.01 ng/ml (0.00-0.034)
[2021-01-10 03:06] LABS: Troponin I < 0.01 ng/ml (0.00-0.034)
[2021-01-10 03:54] VITALS: BP 137/87; PULSE 75; RESP 16; TEMP 36.4; O2SAT 97
--- NOTE | 2021-01-10 03:54 | PC.NURSE ---
Patient is A&Ox4. No complaints of pain. VSS. Patient rested throughout shift. patient showered and ambulated to bathroom independently. no further concerns voiced.
[2021-01-10 04:00] VITALS: PULSE 70
[2021-01-10 05:04] VITALS: BMI 47.5
[2021-01-10 06:08] LABS: Basophils # 0.1 K/mm3 (0-0.2); Basophils % 1.1 % (0.1-2.0); Eosinophils # 0.2 K/mm3 (0.0-0.4); Eosinophils % 1.7 % (0.1-12.0); Hematocrit 44.4 % (42.0-52.0); Hemoglobin 14.8 g/dL (14.1-18.0); Lymphocytes # 2.1 K/mm3 (0.7-4.5); Lymphocytes % 24.3 % (10-50); Mean Corpuscular HGB Conc 33.3 g/dL (31.8-35.4); Mean Corpuscular Hemoglobin 30.6 pg (27.0-31.2); Mean Corpuscular Volume 91.7 fl (80-94); Mean Platelet Volume 8.2 fl (7.4-10.4); Monocytes # 0.6 K/mm3 (0.1-1.0); Monocytes % 7.2 % (1.7-9.3); Neutrophils # 5.6 K/mm3 (1.8-7.8); Neutrophils % 65.7 % (37.0-80.0); Platelet Count 225 K/mm3 (142-424); Red Blood Count 4.84 M/mm3 (4.60-6.20); Red Cell Distribution Width 14.6 % (11.5-17.5); White Blood Count 8.5 K/mm3 (4.8-10.8)
[2021-01-10 06:18] LABS: Chloride 103 mmol/L (98-107); Potassium 4.1 mmoL/L (3.5-5.1); Sodium 137 mmol/L (136-145)
[2021-01-10 06:21] LABS: Anion Gap 13.1 mEq/L (5-15); Blood Urea Nitrogen 18 mg/dl (9-20); Carbon Dioxide 25 mmol/L (22.0-30.0); Creatinine Clearance Estimated 56 mL/min (50-200); Estimated Glomerular Filt Rate 53 ml/min (>60); GFR (African American) 64 ML/MIN (>60); Triglycerides 107 mg/dl (30-150); VLDL Cholesterol 21 mg/dL (0-40)
[2021-01-10 06:22] LABS: Calcium 8.5 mg/dl (8.4-10.2); Cholesterol 135 mg/dl (140-200); Glucose 116 mg/dl (74-100); HDL Cholesterol 34 mg/dl (40-60)
[2021-01-10 06:33] LABS: Direct LDL Cholesterol 74.88 mg/dL (100-129)
[2021-01-10 08:00] VITALS: BP 163/101; PULSE 69; PULSE 73; RESP 18; TEMP 36.7; O2SAT 97
--- NOTE | 2021-01-10 08:09 | HMH.PHAVTE ---
[facility] Pharmacy VTE Monitoring - Patient Demographics Admission date: 01/09/21 Report Date: 01/10/21 Time: 08:09 Allergies/Adverse Reactions: Patient Allergies From TETANUS AND DIPHTHERIA TOXOIDS A... Allergy (Unknown, Uncoded 02/13/19 08:22) SWELLING Height: 1.7 m Weight: 137.438 kg Patient Problems: Current Active Problems Hypertension (Acute) Chest pain (Acute) Obesity (Acute) - VTE Risk Labs: VTE Related Lab Results Hgb 14.8 g/dL (14.1-18.0) 01/10/21 05:03 Hct 44.4 % (42.0-52.0) 01/10/21 05:03 Plt Count 225 K/mm3 (142-424) 01/10/21 05:03 BUN 18 mg/dl (9-20) 01/10/21 05:03 Creatinine 1.40 mg/dl (0.66-1.25) H 01/10/21 05:03 Estimated Creat Clear 56 mL/min (50-200) 01/10/21 05:03 VTE Score: 2 VTE Risk Level: Very Low Risk - Prophylaxis VTE Prophylaxis Ordered?: Yes Types of VTE Prophylaxis: TEDS Knee High Location of Applied Device: Bilateral Lower Extremeties
--- NOTE | 2021-01-10 08:24 | HMH.HPDC ---
General - General Admission date:: 01/09/21 Discharge date: 01/10/21 *Admission Date: 01/09/21 *Chief complaint: chest pain *History of present illness: 50-year-old male with history of hypertension presented to the emergency department with nearly 12 hours of retrosternal sharp chest pain that radiated up into the neck. Pain began at 10 AM in the morning and had lasted throughout the day but had not prevented the patient from going about his normal activities. However as the evening approached patient wanted to rest. His had other plans. Apparently an argument ensued and he told her to just call 911 which she promptly did. Patient was subsequently brought to the ER. Patient admits he was worried he might be having a heart attack but is opposed to invasive intervention such as left heart catheterization which is why he had not sought medical treatment himself. Patient had negative EKG and troponin in the ER. He was admitted for observation and rule out of [place]. His chest pain resolved when he was given Nitropaste [facility] History I have reviewed the patient's past medical history: Yes Medical History: Reports:: Hyperlipidemia, Hypertension, Migraine Denies:: Cancer, Diabetes Mellitus Type 1, Diabetes Mellitus Type 2, MRSA *Have you ever received a pneumonia vaccine?: No *Have you received a flu vaccine this season?: No Other Medical History: Reports: Other Other Surgeries: Yes: Other (testicular torsion) Amputation: No Fractures: No - *Social History Smoking Status: Never smoker Alcohol Intake: never Alcohol Intake Frequency:: holidays/special occasions only Substance Use Type: denies use *Occupational Status:: unemployed *Travel in the last 8 weeks: None Family Hx:: Diabetes, Hypertension, Coronary Artery Disease Review of Systems - Review of Systems Review of systems:: pertinent systems reviewed and negative unless documented below - *Neurologic Denies headache(s), Denies seizure-like activity Exam Vital signs and Labs for Last 24 Hours: Temp Pulse Resp BP Pulse Ox 97.6 F 70 16 137/87 97 01/10/21 03:54 01/10/21 04:00 01/10/21 03:54 01/10/21 03:54 01/10/21 03:54 Laboratory Results - last 24 hr 01/09/21 21:15: WBC 8.6, RBC 5.05, Hgb 15.5, Hct 47.1, MCV 93.2, MCH 30.6, MCHC 32.9, RDW 14.5, Plt Count 229, MPV 8.4, Neut % (Auto) 69.1, Lymph % (Auto) 20.5, [place] % (Auto) 6.7, Eos % (Auto) 2.7, Baso % (Auto) 0.9, Neut # (Auto) 6.0, Lymph # (Auto) 1.8, [place] # (Auto) 0.6, Eos # (Auto) 0.2, Baso # (Auto) 0.1, ESR 2 01/09/21 21:15: Sodium 136, Potassium 4.6, Chloride 102, Carbon Dioxide 26, Anion Gap 12.6, BUN 20, Creatinine 1.40 H, Estimated Creat Clear 58, Estimated GFR 53 L, Est GFR ( Amer) 64, Glucose 112 H, Calcium 8.9, Total Bilirubin 0.7, Direct Bilirubin 0.5 H, Conjugated Bilirubin 0.0, Indirect Bilirubin 0.2, Unconjugated Bilirubin 0.2, AST 38, ALT 34, Alkaline Phosphatase 69, Troponin I < 0.01, C-Reactive Protein 4.9 H, Total Protein 7.2, Albumin 4.3, Procalcitonin 0.138 01/09/21 22:33: SARS-CoV-2 (PCR) Not detected, Influenza A Untype (PCR) Not detected, Influenza Type B (PCR) Not detected 01/09/21 23:35: Troponin I < 0.01 01/10/21 02:35: Troponin I < 0.01 01/10/21 05:03: WBC 8.5, RBC 4.84, Hgb 14.8, Hct 44.4, MCV 91.7, MCH 30.6, MCHC 33.3, RDW 14.6, Plt Count 225, MPV 8.2, Neut % (Auto) 65.7, Lymph % (Auto) 24.3, [place] % (Auto) 7.2, Eos % (Auto) 1.7, Baso % (Auto) 1.1, Neut # (Auto) 5.6, Lymph # (Auto) 2.1, [place] # (Auto) 0.6, Eos # (Auto) 0.2, Baso # (Auto) 0.1 01/10/21 05:03: Sodium 137, Potassium 4.1, Chloride 103, Carbon Dioxide 25, Anion Gap 13.1, BUN 18, Creatinine 1.40 H, Estimated Creat Clear 56, Estimated GFR 53 L, Est GFR ( Amer) 64, Glucose 116 H, Calcium 8.5, Magnesium 2.0, Triglycerides 107, Cholesterol 135 L, LDL Cholesterol Direct 74.88 L, VLDL Cholesterol 21, HDL Cholesterol 34 L, Cholesterol/HDL Ratio 4.0 H I & O for Last 24 hours: Intake & Output 01/07/21 01/08/21
== END 2021-01-10 10:55 | disposition home or self-care (01) ==
LOC: ER 20:53 → 2ND 23:00
PROVIDERS: Admitting Provider Emergency Medicine; Emergency Provider Emergency Medicine; PCP Family Medicine; Visit Provider Family Medicine
DX: R07.9 Chest pain, unspecified (principal); I10 Essential (primary) hypertension; E78.5 Hyperlipidemia, unspecified; E66.01 Morbid (severe) obesity due to excess calories; Z68.42 Body mass index [BMI] 45.0-49.9, adult; Z20.822 Contact with and (suspected) exposure to COVID-19; Z79.899 Other long term (current) drug therapy
CPT/HCPCS: 36415; 71046; 80048; 80061; 80076; 83735; 84145; 84484; 85025; 85651; 86140; 93005; 96365; 99284; G0378; U0003

== ENCOUNTER → 2021-01-20 06:52 | Outpatient (CLI) | payer OTHER, SELFPAY ==
--- NOTE | 2021-01-20 | CA_ITS ---
APPROVED REPORT Exam: Pharmacologic Technologist: Deborah Mahoney Ht: 5 ft 7 in Wt: 300 lbs BSA: 2.40 m2 HR: 72 bpm BP: 143/63 mmHg Indications: Angina, Hypertension Medical History Medications: Lisinopril,,,,, Aspirin,,,,, Pravastatin,,,,, Carvedilol,,,,, TAMSULOSIN,,,,, Cyclobenzaprine,,,,, Stress Test Details Test: LEXISCAN HR Resting HR: 73 bpm Max Heart Rate (APMHR): 168.509043 bpm Max HR Achieved: 89 bpm Target HR (85% APMHR): 142.587962 bpm % of APMHR: 52.98 Recovery HR: 70 bpm BP Resting BP: 143.0/63.0 mmHg Max BP: 149.0/84.0 mmHg Recovery BP: 121.0/67.0 mmHg ECG Resting ECG: Normal sinus rhythm, First degree AV block, Right axis deviation, Poor R wave progression, cannot rule out old anterior MA, PAC Clinical Exercise duration: 04:00 min Highest Stage Achieved: Exercise capacity: 1.0 METs Stress ECG Conclusion Switched from exercise due to limited exercise tolerance(walked less than 4 minutes on Michael Protocol). Symptoms: Shortness of air, dizzy, malaise. No chest pain. Arrhythmias/Ectopy: Occasional PAC (not captured). ST-T Changes: No significant changes. Conclusion: Unremarkable Lexiscan stress. Myoview images reported separately. Electronically signed by : Иван Watts MD 01/20/2021 19:27:19
--- NOTE | 2021-01-20 07:01 | NM_ITS ---
APPROVED REPORT Exam: Nuclear Stress Test Indication: Chest pain, SOB, HTN Patient Location: Outpatient Stress Tech: Deborah Mahoney NM Tech:Bianca Elmore ERICAT, RT (R)(N) Ht: 5 ft 7 in Wt: 300 lbs Bra Size: 126 HR: 72 bpm BP: 143/63 mmHg BSA: 2.40 m2 BMI: 46.9 History: Chest pain, SOB, HTN Procedure: Patient received a 0.4 mg of intravenous Lexiscan, resting heart rate 72 bpm, resting blood pressure 143/63 mmHg, with Lexiscan maximum heart rate achived was 77 bpm which is Less than 85 % of the maximum predicted heart rate and blood pressure was 126/76 mmHg. With Lexiscan, patient denied any complaint of chest pain. Electrocardiogram Resting electrocardiogram showed sinus rhythm, with Lexiscan there is less than 1.[address] segment depression noted from the baseline EKG. The EKG portion of the Lexiscan is nondiagnostic. Cardiac Stress and Resting SPECT Images: Cardiac Stress and Resting SPECT images were obtained using technetium 99m Myoview 30.6 mCi stress and 9.88 mCi at rest. Gated SPECT for analysis of segmental wall motion and calculation of the ejection fraction also done. Prone images were also obtained. Cardiac stress and resting SPECT images show uniform myocardial activity without segmental perfusion abnormality, computer derived ejection fraction is 64% with no regional wall motion abnormality, right ventricle is normal size and contractility. Conclusion: 1. The EKG portion of the Lexiscan Myoview is nondiagnostic. 2. No scintigraphic evidence of reversible ischemia seen, computer derived ejection fraction is 64% with no regional wall motion abnormality, right ventricle is normal size and contractility. 3. Normal Lexiscan Myoview study. Electronically signed by : Иван Watts MD 01/20/2021 19:38:24
--- NOTE | 2021-01-20 08:31 | HMH.ITSHM ---
Current Home Medications as stated by this patient Mark Jackson or customer development representative. []ASA CARVEDILOL TAMSULOSIN CYCLOBENZAPR LISINOPRIL PRAVASTATIN
== END ==
PROVIDERS: PCP Family Medicine; Visit Provider Family Medicine
DX: I20.8 Other forms of angina pectoris (principal); I10 Essential (primary) hypertension; E66.9 Obesity, unspecified
CPT/HCPCS: 78452; 93017; A9502; J2785

== ENCOUNTER → 2021-02-02 10:53 | Outpatient (CLI) | payer OTHER, SELFPAY ==
--- NOTE | 2021-02-02 10:59 | XR_ITS ---
PROCEDURE: XR LUMBAR SPINE MIN 4V CLINICAL INDICATION: LOW BACK PAIN COMPARISON: CR [id number] XR lumbar spine min 4V from 05/12/2018 FINDINGS: There is minimal lumbar curvature convex right No fracture or dislocation. No lytic or blastic change. Small anterior osteophytes are present. The disc spaces are well preserved. There are mild degenerative changes in the lower thoracic spine. The Other findings:Mild sclerosis of the SI joints. IMPRESSION: Mild degenerative changes, no acute finding Dictated by: Sigifredo Sanchez MD 02/02/2021 12:53 Sigifredo Sanchez MD in [place] 02/02/2021 12:53
== END ==
PROVIDERS: PCP Family Medicine; Visit Provider Family Medicine
DX: M54.5 Low back pain (principal)
CPT/HCPCS: 72110

== ENCOUNTER 2021-02-06 10:27 | Outpatient (RCR) | payer OTHER, SELFPAY ==
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
== END 2021-02-06 10:29 | disposition home or self-care (01) ==
LOC: PT 10:27
PROVIDERS: PCP Family Medicine; Visit Provider Family Medicine
DX: M54.5 Low back pain (principal)
CPT/HCPCS: 97163